=== PATIENT | female | born 1940 | race Caucasian/White ===

== ENCOUNTER 2017-07-22 09:15 | Inpatient (IN) | payer OTHER ==
[~2017-07-22] VITALS: Ht 152.4 cm; Wt 43.1 kg
[~2017-07-22 09:15] MED LIST: ATENOLOL25 MG PO; CITALOPRAM HBR20 MG PO; PROTONIX40 M1 PO; SYNTHROID100 MCG PO; ZANTAC300 MG PO
== END 2017-08-08 18:19 | disposition home or self-care (01) | DRG 328 ==
LOC: SURH 07-30 06:05 → O/R 07-30 06:05 → SURH 07-30 07:00
PROVIDERS: Colon & Rectal Surgery
PROC: 02H633Z Insertion of Infusion Device into Right Atrium, Percutaneous Approach (ICD-10-PCS; 2017-07-30)
PROC: 3E0336Z Introduction of Nutritional Substance into Peripheral Vein, Percutaneous Approach (ICD-10-PCS; 2017-07-30)
PROC: 0DB60ZX Excision of Stomach, Open Approach, Diagnostic (ICD-10-PCS; principal; 2017-07-30 07:00)
DX: C16.9 Malignant neoplasm of stomach, unspecified (principal); I11.9 Hypertensive heart disease without heart failure; K31.84 Gastroparesis; E03.8 Other specified hypothyroidism

== ENCOUNTER 2017-09-01 08:54 | Outpatient (CLI) | payer OTHER | END 2017-09-01 09:00 | disposition home or self-care (01) | LOC: LAB 08:54 | DX: C16.9 Malignant neoplasm of stomach, unspecified (principal) ==

== ENCOUNTER 2017-09-02 08:33 | Outpatient (CLI) | payer OTHER | END 2017-09-02 09:00 | disposition home or self-care (01) | LOC: NUCLEAR 08:33 | DX: C16.9 Malignant neoplasm of stomach, unspecified (principal) | CPT/HCPCS: 78815; A9552 ==

== ENCOUNTER 2017-09-10 06:06 | Day surgery (SDC) | payer OTHER | END 2017-09-10 14:30 | disposition home or self-care (01) | LOC: CIR.AMB 06:06 | DX: C16.9 Malignant neoplasm of stomach, unspecified (principal) | CPT/HCPCS: 36561; C1771 ==

== ENCOUNTER 2017-09-18 08:53 | Outpatient (CLI) | payer OTHER | END 2017-09-18 09:06 | disposition home or self-care (01) | LOC: MRI 08:53 | DX: C16.9 Malignant neoplasm of stomach, unspecified (principal) | CPT/HCPCS: 74183 ==

== ENCOUNTER 2017-10-02 08:52 | Outpatient (CLI) | payer OTHER | END 2017-10-02 09:02 | disposition home or self-care (01) | LOC: LAB 08:52 | DX: C16.8 Malignant neoplasm of overlapping sites of stomach (principal) ==

== ENCOUNTER 2018-01-06 10:14 | Outpatient (CLI) | payer OTHER | END 2018-01-06 10:20 | disposition home or self-care (01) | LOC: TOM 10:14 | DX: C16.9 Malignant neoplasm of stomach, unspecified (principal) ==

== ENCOUNTER → 2018-07-02 | Outpatient (CLI) | payer OTHER | END | disposition home or self-care (01) | LOC: NUCLEAR 08:00 | DX: C16.9 Malignant neoplasm of stomach, unspecified (principal) | CPT/HCPCS: 78815; A9552 ==

== ENCOUNTER 2018-10-12 15:14 | Emergency (ER) | payer OTHER ==
[~2018-10-12] VITALS: Ht 149.9 cm; Wt 40.8 kg
[2018-10-12] MEDS ORDERED: BENADRYL25 MG (15:44)
[2018-10-12] MEDS ORDERED: ZOFRAN4 MG (15:44)
== END 2018-10-12 21:08 | disposition home or self-care (01) ==
LOC: ER 15:14
DX: C78.6 Secondary malignant neoplasm of retroperitoneum and peritoneum (principal)